=== PATIENT | female | born 1980 | race African-American/Black ===

== ENCOUNTER 2016-07-04 08:28 | Emergency (ER) | payer SELFPAY ==
[2016-07-04 08:43] VITALS: BP 144/111
[2016-07-04] MEDS ORDERED: IBUPROFEN 600 MG TABLET PO ONE (09:17)
[2016-07-04] MEDS ORDERED: IBUPROFEN 600 MG TABLET ONE (09:19)
--- NOTE | 2016-07-04 09:26 | ERNOTE ---
Lower Extremity HPI - General Lower Extremities Pain: knee: left Time Seen by Provider: 07/04/16 09:14 Source: patient Exam Limitations: no limitations - Immun/Allergies/Home Medications Immunizations: IMMUNIZATION HX History of Influenza Vaccine No Hx Pneumococcal Vaccination No Allergies/Adverse Reactions: Allergies Allergy/AdvReac Type Severity Reaction Status Date / Time No Known Allergies Allergy Unverified 07/04/16 08:43 Home Medications: HOME MEDICATIONS Ibuprofen [Motrin] 600 mg PO Q6H PRN #40 tab 07/04/16 [Last Taken Unknown] - History of Present Illness Narrative: Patient fell on her left knee playing kick ball yesterday, she was able to walk and did not start to have significant pain till 02:00 today when she took tylenol. She denies any other injuries, is able to ambulate Date (Duration): 07/03/16 Time (Timing): 15:00 Occurred: yesterday Method of Injury: Reports: fell Reason for Fall: Reports: lost balance Loss of Consciousness: Reports: no loss of consciousness Modifying Factors - (Improves): Reports: rest Modifying Factors - (Worsens): Reports: movement Associated Symptoms: Denies: unable to bear weight Other Injuries: Reports: none. Denies: head Subsequent Symptoms: Denies: sensory loss, numbness Prior Treament: Denies: recently seen Review of Systems - Review of Systems Constitutional: Absent: recent illness, fever Respiratory: Absent: shortness of breath Cardiology: Absent: chest pain Gastrointestinal/Abdominal: Absent: nausea, abdominal pain Genitourinary: Present: no symptoms reported Musculoskeletal: Present: See HPI Skin: Absent: rash Neurological: Absent: weakness, numbness - Patient's Past Medical History Patient History - Medical: No pertinent hx Patient History - Cardiac/Respiratory: No pertinent hx Patient History - Cancer: No Hx of Cancer Patient History - Surgical Procedures: No surgical history Patient History - Other: None - Social History Living Situations: home Psych History: No pertinent hx Drug Use: none - Immunizations Hx Pneumococcal Vaccination: No History of Influenza Vaccine: No Physical Exam - Physical Exam General Appearance: Present: wd/wn, alert, no apparent distress, other - walking with a limp Respiratory: Present: no respiratory distress Extremity Exam: Present: normal inspection, no edema, normal range of motion - mild pain with ROM, other - mild tenderness over patella, no swelling, no echymosis Neurological Exam: Present: alert, oriented, normal mood/affect, no motor/ sensory deficits Skin Exam: Present: normal color, warm/dry ED Progress - Vital Signs Patient's Vital Signs:: I have reviewed the patient's vital signs. Vital Signs: Vital Signs 07/04/16 08:39 Temperature 36.5 C Pulse Rate 76 Respiratory 12 Rate Blood Pressure 144/111 O2 Sat by Pulse 99 Oximetry - X-Ray X-Ray #1 X-Ray: knee - no acute findings Interpretation: Reviewed by me - Progress/Reassessment Chief Complaint: Lower Extremity Pain/ Injury Departure Clinical Impression: Contusion of knee, left Qualifiers: Encounter type: initial encounter Qualified Code(s): S80.02XA - Contusion of left knee, initial encounter - Departure Disposition: Home self-care Condition: Good Instructions: Knee Pain, Form - Excuse from Work, School, or Physical Activity Additional Instructions: if you are not better next week call the orthopedic clinic for follow up Referrals: Nathanael Amador MD [Staff Physician] - Prescriptions: Ibuprofen [Motrin] 600 mg PO Q6H PRN #40 tab PRN Reason: Pain
== END 2016-07-04 09:25 | disposition home or self-care (01) ==
LOC: ER 08:28
DX: S80.02XA Contusion of left knee, initial encounter (principal); W19.XXXA Unspecified fall, initial encounter; Y93.6A Activity, physical games generally associated with school recess, summer camp and children